=== PATIENT | male | born 1955 | race African-American/Black ===

== ENCOUNTER 2021-01-05 06:42 | Emergency (ER) | payer OTHER | END 2021-01-05 07:13 | disposition left against medical advice (07) | LOC: ERS 06:42 | DX: Z53.21 Procedure and treatment not carried out due to patient leaving prior to being seen by health care provider (principal) ==

== ENCOUNTER 2023-07-14 06:24 | Day surgery (SDC) | payer MEDICARE, MEDICAID ==
[2023-07-13 12:27] VITALS: BMI 21.8
[2023-07-14] MEDS ORDERED: Lidocaine 1% PF 5 ML VIAL ONE (08:42)
[2023-07-14] MEDS ORDERED: PROPOFOL 200 MG/20 ML VIAL ONE (08:42)
[2023-07-16 09:16] LABS: Hep C PCR-Quant HCV Not Detected IU/mL (.)
== END 2023-07-14 10:40 | disposition home or self-care (01) ==
LOC: SDC 06:24
PROVIDERS: ATTEND Internal Medicine Gastroenterology
PROC: 0DB68ZX Excision of Stomach, Via Natural or Artificial Opening Endoscopic, Diagnostic (ICD-10-PCS; principal; 2023-07-14)
PROC: 0DJD8ZZ Inspection of Lower Intestinal Tract, Via Natural or Artificial Opening Endoscopic (ICD-10-PCS; 2023-07-14)
DX: K21.9 Gastro-esophageal reflux disease without esophagitis (principal); K52.9 Noninfective gastroenteritis and colitis, unspecified; F03.90 Unspecified dementia, unspecified severity, without behavioral disturbance, psychotic disturbance, mood disturbance, and anxiety; K29.50 Unspecified chronic gastritis without bleeding; F32.A Depression, unspecified; I10 Essential (primary) hypertension; G40.909 Epilepsy, unspecified, not intractable, without status epilepticus; Z90.49 Acquired absence of other specified parts of digestive tract; Z87.891 Personal history of nicotine dependence; Z79.899 Other long term (current) drug therapy
CPT/HCPCS: 36415; 87522; 87902; 88305; 94640; J2704; J7611

== ENCOUNTER 2024-11-29 07:37 | Outpatient (CLI) | payer OTHER | END 2024-11-29 07:38 | disposition home or self-care (01) | LOC: BICCT 07:37 | PROVIDERS: ATTEND Family Medicine | DX: R19.07 Generalized intra-abdominal and pelvic swelling, mass and lump (principal); J98.4 Other disorders of lung; J43.9 Emphysema, unspecified | CPT/HCPCS: 74150 ==